=== PATIENT | female | born 1935 | race Caucasian/White ===

== ENCOUNTER 2022-06-11 08:04 | Outpatient (CLI) | payer OTHER ==
[2022-06-11] MEDS ORDERED: LOTREL 10-20 M1 EACH (09:51)
[2022-06-11] MEDS ORDERED: GLUMETZA500 MG (09:51)
[2022-06-11] MEDS ORDERED: ECOTRIN81 MG (09:52)
== END 2022-06-11 08:29 | disposition home or self-care (01) ==
LOC: MRI 08:04
PROVIDERS: ATTEND General Practice
DX: R42 Dizziness and giddiness (principal)
CPT/HCPCS: 70551